=== PATIENT | male | born 1975 | race African-American/Black ===

== ENCOUNTER 2022-08-09 08:00 | Emergency (ER) | payer OTHER ==
[~2022-08-09] VITALS: Ht 182.9 cm; Wt 80.0 kg
[2022-08-09 09:38] LABS: *AMPHETAMINES SCREEN URINE PRESUMTIVE POSITIVE (NEGATIVE); *BARBITURATES SCREEN URINE NEGATIVE (NEGATIVE); *BENZODIAZEPINES SCREEN URINE NEGATIVE (NEGATIVE); *COCAINE SCREEN URINE NEGATIVE (NEGATIVE); CANNABINOID URINE SCREEN NEGATIVE (NEGATIVE); METHADONE URINE SCREEN NEGATIVE (NEGATIVE); OPIATES URINE SCREEN NEGATIVE (NEGATIVE); PHENCYCLIDINE URINE SCREEN NEGATIVE (NEGATIVE)
[2022-08-09 10:31] LABS: BASOPHILS % 0.8 % (0.0-2.0); EOSINOPHILS % 2.4 % (0.0-5.0); HEMATOCRIT. 41.1 % (42.0-52.0); HEMOGLOBIN. 13.7 g/dL (14.0-18.0); LYMPHOCYTES % 33.6 % (20.0-50.0); MEAN CORPUSCULAR VOLUME 95.9 fL (80.0-94.0); MEAN PLATELET VOLUME 7.7 fl (7.4-10.4); MONOCYTES % 12.9 % (2.0-8.0); NEUTROPHILS % 50.3 % (40.0-76.0); PLATELET 233 x1000/uL (130-400); RED BLOOD CELL COUNT 4.28 mill/uL (4.7-6.1); RED CELL DISTRIBUTION WIDTH 13.9 % (11.6-14.6)
[2022-08-09 10:44] LABS: CHLORIDE 101 mEq/L (98-107)
[2022-08-09 10:50] LABS: ETHANOL BLOOD < 10 mg/dL (-10)
[2022-08-09] MEDS ORDERED: POTASSIUM CHLORIDE 20MEQ/PACKET PO SCH (11:00)
[2022-08-09] MEDS ORDERED: IBUPROFEN 600MG TABLET PO ONE (14:45)
[2022-08-09] MEDS ORDERED: QUETIAPINE FUMARATE 50MG TABLET PO SCH (21:00)
[2022-08-10 01:16] VITALS: BP 97/52
== END 2022-08-10 01:42 ==
LOC: ER 08:00
DX: R45.851 Suicidal ideations (principal); R44.0 Auditory hallucinations; F31.9 Bipolar disorder, unspecified; Z20.822 Contact with and (suspected) exposure to COVID-19
CPT/HCPCS: 36415; 80048; 80305; 80307; 80320; 80329; 85025; 87426; 99285; C9803; Z7610; G0480